=== PATIENT | male | born 1950 | race Caucasian/White ===

== ENCOUNTER 2021-08-15 12:11 | Day surgery (SDC) | payer MEDICARE, MEDICAID ==
[~2021-08-15] VITALS: Ht 177.8 cm; Wt 126.0 kg
[~2021-08-15 12:11] MED LIST: ERGO500054 PO; FERR325T29 PO; FOLI0.4T6 PO; LAMO200T10 PO; MILK175T PO; RISP1TAB98 PO; THIA100T70 PO; VITA-268 PO; VORT10TA PO
[2021-08-15 12:30] VITALS: BP 117/62
[2021-08-15] MEDS ORDERED: fentaNYL/PF 50MCG/1 ML 2ML syringe ONE (12:32)
[2021-08-15] MEDS ORDERED: MIDAZolam 1 MG/ML 5ML VIAL ONE (12:33)
[2021-08-15] MEDS ORDERED: FLO0.4C PO (12:54)
[2021-08-15 13:46] VITALS: BP 126/60
[2021-08-15 13:56] VITALS: BP 123/65
[2021-08-15 14:06] VITALS: BP 122/71
[2021-08-15 14:16] VITALS: BP 120/68
== END 2021-08-15 14:40 | disposition home or self-care (01) ==
LOC: GI LAB 12:11
PROVIDERS: ATTEND Internal Medicine Gastroenterology
DX: K92.1 Melena (principal); K62.89 Other specified diseases of anus and rectum; K64.8 Other hemorrhoids; E66.9 Obesity, unspecified; Z68.39 Body mass index [BMI] 39.0-39.9, adult; Z87.891 Personal history of nicotine dependence; Z86.19 Personal history of other infectious and parasitic diseases; Z79.899 Other long term (current) drug therapy
CPT/HCPCS: 45334; G0500; J2250; J3010; J7040; Z7512; 99152; 99153; A4620

== ENCOUNTER 2021-10-17 07:20 | Day surgery (SDC) | payer MEDICARE, MEDICAID ==
[~2021-10-17] VITALS: Ht 177.8 cm; Wt 116.8 kg
[~2021-10-17 07:20] MED LIST changes: +FLO0.4C PO
[2021-10-17 07:36] VITALS: BP 154/83
[2021-10-17] MEDS ORDERED: ALPR-624 PO (07:46)
[2021-10-17] MEDS ORDERED: fentaNYL/PF 50MCG/1 ML 2ML syringe ONE (08:22)
[2021-10-17] MEDS ORDERED: MIDAZolam 1 MG/ML 5ML VIAL ONE (08:23)
[2021-10-17 09:50] VITALS: BP 113/89
[2021-10-17 10:00] VITALS: BP 134/78
[2021-10-17 10:10] VITALS: BP 128/70
[2021-10-17 10:20] VITALS: BP 134/73
== END 2021-10-17 10:58 | disposition home or self-care (01) ==
LOC: GI LAB 07:20
PROVIDERS: ATTEND Internal Medicine Gastroenterology
DX: K92.1 Melena (principal); K62.89 Other specified diseases of anus and rectum; K62.7 Radiation proctitis; K64.8 Other hemorrhoids; K74.60 Unspecified cirrhosis of liver; Z85.46 Personal history of malignant neoplasm of prostate; Z87.891 Personal history of nicotine dependence; Z86.19 Personal history of other infectious and parasitic diseases
CPT/HCPCS: 45334; G0500; J2250; J3010; J7030; Z7512; 45346; 99152; 99153; A4620

== ENCOUNTER 2021-12-12 10:01 | Day surgery (SDC) | payer MEDICARE, MEDICAID ==
[~2021-12-12] VITALS: Ht 177.8 cm; Wt 117.0 kg
[~2021-12-12 10:01] MED LIST changes: +ALPR-624 PO
[2021-12-12 10:10] VITALS: BP 126/78
[2021-12-12] MEDS ORDERED: MIDAZolam 1 MG/ML 5ML VIAL ONE (11:14)
[2021-12-12] MEDS ORDERED: fentaNYL/PF 50MCG/1 ML 2ML syringe ONE (11:14)
[2021-12-12 12:13] VITALS: BP 118/67
[2021-12-12 12:23] VITALS: BP 115/64
[2021-12-12 12:33] VITALS: BP 133/85
[2021-12-12 12:43] VITALS: BP 126/71
== END 2021-12-12 12:52 | disposition home or self-care (01) ==
LOC: GI LAB 10:01
PROVIDERS: ATTEND Internal Medicine Gastroenterology
DX: K62.5 Hemorrhage of anus and rectum (principal)
CPT/HCPCS: 45334; J2250; J3010; J7030; Z7512; 99152; A4620

== ENCOUNTER 2022-07-28 10:20 | Emergency (ER) | payer MEDICARE, MEDICAID ==
[~2022-07-28] VITALS: Ht 177.8 cm; Wt 120.0 kg
[2022-07-28] MEDS ORDERED: normal saline 1000ML IV soln IV ONE (14:40)
[2022-07-28] MEDS ORDERED: ketorolac trometh. 30mg/ml inj. IV ONE (14:40)
[2022-07-28 15:35] LABS: BASOPHILS % (AUTO) 0.5 % (0-1); EOSINOPHILS # (AUTO) 0.2 X10'3 (0-0.9); EOSINOPHILS % (AUTO) 4.3 % (0-6); HEMATOCRIT 35.7 % (42.0-52.0); HEMOGLOBIN 12.2 g/dl (14.0-17.9); LYMPHOCYTES # (AUTO) 1.3 X10'3 (1.1-4.8); LYMPHOCYTES % (AUTO) 28.5 % (21-51); MEAN CORPUSCULAR HGB CONC 34.3 g/dL (33.0-36.5); MEAN CORPUSCULAR VOLUME 87.7 FL (78-98); MEAN PLATELET VOLUME 7.2 FL (7.4-10.4); MONOCYTES # (AUTO) 0.3 X10'3 (0-0.9); NEUTROPHILS # (AUTO) 2.8 X10'3 (1.8-7.7); NEUTROPHILS % (AUTO) 59.7 % (42-75); PLATELET COUNT 109 X10'3 (140-440); RED BLOOD COUNT 4.07 X10'6 (4.70-6.10); WHITE BLOOD COUNT 4.7 X10'3 (4.5-11.0)
[2022-07-28 15:46] LABS: ALANINE AMINOTRANSFERASE 49 U/L (12-78); ALBUMIN 3.6 G/DL (3.4-5.0); ALKALINE PHOSPHATASE 96 IU/L (46-116); ANION GAP 5 (8-16); ASPARTATE AMINO TRANSFERASE 52 U/L (10-37); BILIRUBIN,TOTAL 0.9 MG/DL (0.1-1.0); BLOOD UREA NITROGEN 12 MG/DL (7-18); BUN/CREATININE RATIO 15.2 (10.0-20.0); CALCIUM 8.8 MG/DL (8.5-10.1); CHLORIDE 104 MMOL/L (99-107); CREATININE 0.79 MG/DL (0.60-1.10); GLUCOSE 116 MG/DL (70-104); MAGNESIUM 2.2 MG/DL (1.5-2.4); POTASSIUM 4.1 MMOL/L (3.5-5.1); SODIUM 139 MMOL/L (135-145); TOTAL CARBON DIOXIDE 29.6 MMOL/L (24-32); TOTAL PROTEIN 7.3 G/DL (6.4-8.2); eGFR > 90 ML/MIN
[2022-07-28] MEDS ORDERED: OXYC10TA47 PO (17:49)
[2022-07-28] MEDS ORDERED: LORA-269 PO (17:50)
[2022-07-28] MEDS ORDERED: TRAZ-256 PO (17:51)
[2022-07-28] MEDS ORDERED: DICL100G30 TOP (17:51)
[2022-07-28] MEDS ORDERED: DOXY100T2 PO (17:52)
[2022-07-28] MEDS ORDERED: BACL10TA2 PO (17:53)
[2022-07-28] MEDS ORDERED: DIPH25CA83 PO (17:54)
[2022-07-28 18:13] VITALS: BP 138/96
== END 2022-07-28 18:14 | disposition home or self-care (01) ==
LOC: ER 10:21
DX: T81.9XXA Unspecified complication of procedure, initial encounter (principal); M25.512 Pain in left shoulder; G89.29 Other chronic pain; Z79.899 Other long term (current) drug therapy; Z79.1 Long term (current) use of non-steroidal anti-inflammatories (NSAID); Z79.2 Long term (current) use of antibiotics; Z87.81 Personal history of (healed) traumatic fracture
CPT/HCPCS: 36415; 71045; 80053; 83605; 83735; 84145; 85025; 87040; 93005; 93971; 96361; 96374; 99285; J1885; J7030